=== PATIENT | male | born 1955 | race Caucasian/White ===

== ENCOUNTER 2018-04-20 12:03 | Observation (INO) | payer MEDICAID ==
[2018-04-20 12:41] LABS: Hematocrit 38.4 % (42.0-52.0); Mean Cell Volume 94.6 fl (78-100); Mean Corpuscular Hgb Conc 33.9 g/dl (32-36); Mean Platelet Volume 8.5 fl (8-11.3); Neutrophil % 56.5 % (42-75.0); Platelet Count 291 K/mm3 (150-450); Red Blood Count 4.06 M/mm3 (4.7-6.0); Red Cell Distribution Width 13.8 % (11.5-14.0); White Blood Count 5.3 K/mm3 (4.0-10.5)
[2018-04-20 13:02] LABS: Albumin * 3.2 gm/dl (3.4-5.0); Anion Gap 10.5 mmol/L (6.8-13.8); BUN/Creatinine Ratio 13.5 (9.0-21.6); Bilirubin, Total 0.7 mg/dL (0.0-1.1); Ca. Corrected For Albumin 8.3 mg/dL (8.4-10.2); Carbon Dioxide 26.9 mmol/L (24-32.6); Potassium 3.4 mmol/L (3.4-4.6); Total Protein 6.2 gm/dL (6.2-8.2)
[2018-04-20 13:25] LABS: Urine Bilirubin Negative (NEGATIVE); Urine Blood 25 /ul (NEGATIVE); Urine Ketone Negative (NEGATIVE); Urine Nitrite Negative (NEGATIVE); Urine Protein Negative (NEGATIVE); Urine Specific Gravity 1.025 SP.GR. (1.005-1.030); Urine Urobilinogen Normal (NORMAL)
[2018-04-20 13:41] LABS: Urine Amorphous Sediment Few - 1+ (NONE-FEW); Urine Appearance Slightly Cloudy (CLEAR); Urine Bacteria None Seen; Urine Color Yellow; Urine Hyaline Cast TRACE /LPF; Urine RBC None Seen /hpf (0-5); Urine WBC None Seen /hpf (0-5)
[2018-04-20 13:44] LABS: Cocaine Ur Negative (NEGATIVE); Urine Barbiturate Negative (NEGATIVE); Urine Benzodiazepines Negative (NEGATIVE); Urine Opiates Negative (NEGATIVE); Urine PCP Negative (NEGATIVE); Urine THC Positive (NEGATIVE)
[2018-04-20] MEDS ORDERED: NORMAL SALINE 1,000 ML IV ONE (14:07)
--- NOTE | 2018-04-20 14:11 | ERNOTE ---
Medical Problem HPI - General Chief Complaint: General Assessment Time Seen by Provider: 04/20/18 12:11 Source: family, EMS Exam Limitations: no limitations - Immun/Allergies/Home Medications Immunizations: IMMUNIZATION HX Immunizations Up to Date No History of Influenza Vaccine No Hx Pneumococcal Vaccination No Allergies/Adverse Reactions: Allergies Penicillins Allergy (Verified 04/20/18 12:12) Home Medications: HOME MEDICATIONS Aspirin 04/20/18 [Last Taken Unknown] - History of Present History Narrative: Patient states that he stopped taking his seizure medicines and has been using amphetamines and marijuana to self medicate. Patient was found in an apparent postictal state on the floor and was hypotensive with a blood pressure of 80/40. Timing: constant Severity: moderate Review of Systems - Review of Systems Constitutional: Present: See HPI EYE: Present: no symptoms reported ENT: Present: no symptoms reported Respiratory: Present: no symptoms reported Cardiology: Present: no symptoms reported Gastrointestinal/Abdominal: Present: no symptoms reported Genitourinary: Present: no symptoms reported Musculoskeletal: Present: no symptoms reported Skin: Present: no symptoms reported Neurological: Present: See HPI Endocrine: Present: no symptoms reported Hematologic/Lymphatic: Present: no symptoms reported Psych: Present: no symptoms reported Medical History (Last Updated 04/20/18 @ 12:12 by Agnes Whitlock) Seizure Surgical History: Surgical History (Last Updated 04/20/18 @ 12:23 by Agnes Whitlock) History of orthopedic surgery Social History: Preferred Language Japanese Do you have any hoahaoism or Yes: amish cultural preference? Smoking Status Current every day smoker Have you smoked in the past 12 Yes months Do you dip or chew tobacco No Alcohol Use occasionally Drug Use marijuana,meth No Social History Section defined Physical Exam - Physical Exam General Appearance: Present: wd/wn, moderate distress, other - Sleepy apparently postictal Head Exam: Present: normal inspection, no evidence of injury Eye Exam: Normal inspection: bilateral, PERRL: bilateral Ears, Nose, Throat: Present: normal pharynx, dry mucous membranes Neck: Present: normal inspection, nontender Respiratory: Present: no respiratory distress, normal breath sounds, no accessory muscle use, chest nontender, lungs clear Cardiovascular/Chest: Present: regular rate, rhythm, no murmur, normal peripheral pulses Gastrointestinal/Abdominal: Present: normal bowel sounds, nontender, nondistended, soft, no organomegaly Rectal Exam: Present: deferred Back Exam: Present: normal inspection, normal range of motion Extremity Exam: Present: normal inspection, non-tender, no edema, normal range of motion Neurological Exam: Present: oriented, normal mood/affect, other - Postictal Skin Exam: Present: normal color, warm/dry Lymphatic Exam: Present: no adenopathy ED Progress - Results and Orders Patient's Lab Results:: I have reviewed the patient's lab results. - Vital Signs Patient's Vital Signs:: I have reviewed the patient's vital signs. Vital Signs: Vital Signs 04/20/18 12:04 04/20/18 12:27 04/20/18 12:58 Temperature 36.0 C Pulse Rate 91 86 84 Respiratory Rate 12 15 13 Blood Pressure 131/85 128/66 127/64 O2 Sat by Pulse Oximetry 93 94 94 04/20/18 13:16 Temperature Pulse Rate 82 Respiratory Rate 14 Blood Pressure 126/64 O2 Sat by Pulse Oximetry 94 - CT/Ultrasound CT/Ultrasound Narrative: CT of the head reviewed by me - Progress/Reassessment Chief Complaint: General Assessment Plan - Plan Plan: Unclear etiology for exactly was going on with this patient. Possibly he had an extended run of seizures which could have caused some possible brain damage or he was on an extensive amphetamine and marijuana binge which also could cause brain damage. Patient be admitted to a monitored bed and EEG will be arranged. Departure Clinical Impression: Seizure disorder, Substance abuse - Departure Disposition: Still a patient Condition: Fair Referrals: Miles Pretty MD [Primary Care Provider] -
[2018-04-20 17:07] LABS: Salicylate Less than 2.8 mg/dL (2.8-20.0)
[2018-04-20] MEDS ORDERED: ACETAMINOPHEN 325 MG TABLET PO PRN (18:59)
[2018-04-20] MEDS: NORMAL SALINE 1,000 ML IV PRN (19:40)
--- NOTE | 2018-04-20 19:42 | HP ---
Chief Complaint - Chief Complaint Date of Service: 04/20/18 Time of Service: 19:06 Chief Complaint: decreased mentation History of Present Illness: Patient seen and examined, no family present. History largely obtained from chart review, as he is somnolent and does not answer many questions. He reportedly is prescribed seizure medication, possibly keppra, but hasn't been taking it. UDS positive for amphetamines and marijuana. He spent several hours in the ED today, but his mentation did not improve. He answers some yes or no questions for me, but does not give details of today's events. He is requiring oxygen currently via [place], but otherwise his vitals are within normal limits. He has episodes of confusion intermittently. He is listed as Dr. Pretty's patient, but there is only one new patient visit with him in [place] in July 2015, and seizure medication is not included in that note. Medical History (Last Updated 04/20/18 @ 12:12 by Agnes Whitlock) Seizure Surgical History: Surgical History (Last Updated 04/20/18 @ 12:23 by Agnes Whitlock) History of orthopedic surgery Social History: Preferred Language Bulgarian Do you have any druze or Yes: hindu cultural preference? Smoking Status Current every day smoker Have you smoked in the past 12 Yes months Do you dip or chew tobacco No Alcohol Use occasionally Drug Use marijuana,meth No Social History Section defined Review Of Systems (GEN) - Review of Systems Generalized/Overall Review: Absent: Fever Respiratory: Absent: Cough Cardiac: Absent: Chest Pain Abdominal: Absent: Vomiting Genitourinary: Absent: Urgency Immunizations: IMMUNIZATION HX Immunizations Up to Date No History of Influenza Vaccine No Hx Pneumococcal Vaccination No Allergies/Adverse Reactions: Allergies Allergy/AdvReac Type Severity Reaction Status Date / Time Penicillins Allergy Verified 04/20/18 12:12 Home Medications: HOME MEDICATIONS Aspirin 04/20/18 [Last Taken Unknown] Exam - Exam Vital Signs: Vital Signs - Last Taken Temp 36.0 C 04/20/18 12:04 Pulse 86 04/20/18 16:52 Resp 12 04/20/18 16:52 BP 110/75 04/20/18 16:52 Pulse Ox 93 04/20/18 16:52 Constitutional: Present: Somnolent, Looks Older than stated age ENT Exam: Present: dry mucous membranes Neck: Absent: lymphadenopathy (R), lymphadenopathy (L) Respiratory: Present: lungs clear, normal breath sounds, No wheezing. Absent: rhonchi Cardiovascular/Chest: Present: regular rate, rhythm. Absent: edema Abdomen: Present: Normal bowel sounds, soft, nontender, nondistended Extremity: Present: no pedal edema Skin Exam: Present: other - superficial 15 cm abrasion of mid left anterior lower leg Eye contact: Present: avoids eye contact, decreased rate of speech, other - mumbles words Diagnostic Studies: Abnormal Lab Results 04/20/18 04/20/18 04/20/18 Range/Units 12:30 12:30 12:30 RBC 4.06 L (4.7-6.0) M/mm3 Hgb 13.0 L (13.5-18.0) gm/dL Hct 38.4 L (42.0-52.0) % MCH 32.0 H (27-31) pg Eosinophils % 5.6 H (0.0-3.0) % Basophils % 1.1 H (0.0-1.0) % Random Glucose 113 H (70-110) mg/dL Calcium Adj for Albumin 8.3 L (8.4-10.2) mg/dL ALT 18 L (19-67) U/L Albumin 3.2 L (3.4-5.0) gm/dl Urine Blood (NEGATIVE) /ul Salicylates Less than 2.8 L (2.8-20.0) mg/dL Acetaminophen 8.0 L (10.0-30.0) mcg/mL Urine Amphetamine (NEGATIVE) Urine Marijuana (THC) (NEGATIVE) 04/20/18 04/20/18 Range/Units 12:56 12:56 RBC (4.7-6.0) M/mm3 Hgb (13.5-18.0) gm/dL Hct (42.0-52.0) % MCH (27-31) pg Eosinophils % (0.0-3.0) % Basophils % (0.0-1.0) % Random Glucose (70-110) mg/dL Calcium Adj for Albumin (8.4-10.2) mg/dL ALT (19-67) U/L Albumin (3.4-5.0) gm/dl Urine Blood 25 H (NEGATIVE) /ul Salicylates (2.8-20.0) mg/dL Acetaminophen (10.0-30.0) mcg/mL Urine Amphetamine Positive H (NEGATIVE) Urine Marijuana (THC) Positive H (NEGATIVE) Laboratory Results WBC 5.3 K/mm3 (4.0-10.5) 04/20/18 12:30 RBC 4.06 M/mm3 (4.7-6.0) L 04/20/18 12:30 Hgb 13.0 gm/dL (13.5-18.0) L 04/20/18 12:30 Hct 38.4 % (42.0-52.0) L 04/20/18 12:30 MCV 94.6 fl (78-100) 04/20/18 12: MCH 32.0 pg (27-31) H 04/20/18 12: MCHC 33.9 g/dl (32-36) 04/20/18 12: RDW 13.8 % (11.5-14.0) 04/20/18 12:30 Plt Count 291 K/mm3 (150-450) 04/20/18 12: MPV 8.5 fl (8-11.3) 04/20/18 12: Immature Gran % (Auto) 0.40 % (0.001-0.429) 04/20/18 12: Immature Gran # (Auto) 0.02 K/mm3 (0.000-0.0310) 04/20/18 12:30 Neutrophils % 56.5 % (42-75.0) 04/20/18 12:30 Lymphocytes % 28.3 % (20-51) 04/20/18 12:30 Monocytes % 8.1 % (0.0-9) 04/20/18 12:30 Eosinophils % 5.6 % (0.0-3.0) H 04/20/18 12: Basophils % 1.1 % (0.0-1.0) H 04/20/18 12:30 Nucleated RBC % 0.0 k/mm3 (0-1) 04/20/18 12:30 Neutrophils # 3.0 K/mm3 (1.3-6.0) 04/20/18 12:30 Lymphocytes # 1.51 k/mm3 (1.5-3.5) 04/20/18 12: Monocytes # 0.4 k/mm3 (0.0-1.0) 04/20/18 12:30 Eosinophils # 0.3 k/mm3 (0.0-0.7) 04/20/18 12:30 Absolute Basophils 0.1 k/mm3 (0.0-0.1) 04/20/18 12:30 Sodium 139 mmol/L (132-142) 04/20/18 12:30 Plasma Sodium 139 mmol/L (130-142) 04/20/18 12:30 Potassium 3.4 mmol/L (3.4-4.6) 04/20/18 12:30 Chloride 105 mmol/L (97-106) 04/20/18 12:30 Carbon Dioxide 26.9 mmol/L (24-32.6) 04/20/18 12:30 Anion Gap 10.5 mmol/L (6.8-13.8) 04/20/18 12:30 BUN 12 mg/dL (6-23) 04/20/18 12:30 Creatinine 0.89 mg/dL (0.4-1.4) 04/20/18 12:30 Est GFR (Non-Af Amer) 91 mL/min (60-130) 04/20/18 12:30 BUN/Creatinine Ratio 13.5 (9.0-21.6) 04/20/18 12:30 Random Glucose 113 mg/dL (70-110) H 04/20/18 12:30 Calcium 8.0 mg/dL (7.9-10.9) 04/20/18 12:30 Calcium Adj for Albumin 8.3 mg/dL (8.4-10.2) L 04/20/18 12:30 Magnesium 2.0 mg/dL (1.2-2.8) 04/20/18 12:30 Total Bilirubin 0.7 mg/dL (0.0-1.1) 04/20/18 12:30 AST 17 U/L (0-48) 04/20/18 12:30 ALT 18 U/L (19-67) L 04/20/18 12:30 Alkaline Phosphatase 52 U/L (50-170) 04/20/18 12:30 Total Protein 6.2 gm/dL (6.2-8.2) 04/20/18 12:30 Albumin 3.2 gm/dl (3.4-5.0) L 04/20/18 12:30 Urine Color Yellow 04/20/18 12:56 Urine Appearance Slightly cloudy (CLEAR) 04/20/18 12:56 Urine pH 6.0 pH (5.0-7.0) 04/20/18 12:56 Ur Specific [place] 1.025 SP.GR. (1.005-1.030) 04/20/18 12:56 Urine Protein Negative mg/dL (NEGATIVE) 04/20/18 12:56 Urine Glucose (UA) Negative mg/dL (NEGATIVE) 04/20/18 12:56 Urine Ketones Negative mg/dL (NEGATIVE) 04/20/18 12:56 Urine Blood 25 /ul (NEGATIVE) H 04/20/18 12:56 Urine Nitrate Negative (NEGATIVE) 04/20/18 12:56 Urine Bilirubin Negative mg/dl (NEGATIVE) 04/20/18 12:56 Urine Urobilinogen Normal EU/dl (NORMAL) 04/20/18 12:56 Ur Leukocyte Esterase Negative /ul (NEGATIVE) 04/20/18 12:56 Urine RBC None seen /hpf (0-5) 04/20/18 12:56 Urine WBC None seen /hpf (0-5) 04/20/18 12:56 Ur Epithelial Cells None seen /hpf (0-5) 04/20/18 12:56 Amorphous Sediment Few - 1+ (NONE-FEW) 04/20/18 12:56 Urine Bacteria None seen (NONE) 04/20/18 12:56 Hyaline Casts Trace /LPF (NONE) 04/20/18 12:56 Urine Culture Comments No culture indicated 04/20/18 12:56 Salicylates Less than 2.8 mg/dL (2.8-20.0) L 04/20/18 12:30 Urine Opiates Screen Negative (NEGATIVE) 04/20/18 12:56 Acetaminophen 8.0 mcg/mL (10.0-30.0) L 04/20/18 12:30 Barbiturate Screen Negative (NEGATIVE) 04/20/18 12:56 Ur Phencyclidine Scrn Negative (NEGATIVE) 04/20/18 12:56 Urine Amphetamine Positive (NEGATIVE) H 04/20/18 12:56 U Benzodiazepines Scrn Negative (NEGATIVE) 04/20/18 12:56 Urine Cocaine Screen Negative (NEGATIVE) 04/20/18 12:56 Urine Marijuana (THC) Positive (NEGATIVE) H 04/20/18 12:56 Ethyl Alcohol Less than 3.0 mg/dL (0.0-10.0) 04/20/18 12:30 Assessment/Plan - Assessment/Plan (1) Altered mental state Assessment: Ddx includes medication side effect, OD, seizure, brain lesion, electrolyte im balance, infection, hypoxia, hypoglycemia. UDS positive for amphetamine and THC. Has been in our facility for greater than 7 hours without significant improvement in mentation. Head CT was negative. EEG pending for tomorrow. No significant abnormalities on CBC and CMP. WBC not elevated. UA negative for leukocyte esterase and nitrites. CXR, EKG, and ABG pending. Infection seems unlikely, as he is afebrile without respiratory or urinary symptoms, and WBC not elevated. Glucose not decreased at 113. If his mentation does not improve, however, may need to obtain lumbar puncture. Problem: Acute (2) Seizure disorder Assessment: Per ED notes, he reported having a seizure disorder and hadn't been taking his medications. One office note from 2016 does not mention seizure disorder, and he is not alert enough to properly answer questions. He was given a dose of keppra in the ED. EEG ordered, and will reevaluate in the morning. Problem: Acute (3) Substance abuse Assessment: UDS positive for amphetamines and marijuana. He is somnolent, not answering questions. Vitals largely within normal limits, but he is requiring oxygen via [place]. Will further assess when he is more awake, but will need to monitor for signs of withdrawal. Problem: Acute
[2018-04-21] MEDS: NORMAL SALINE 1,000 ML IV PRN (04:22)
--- NOTE | 2018-04-21 08:20 | DS ---
(1) Altered mental state Problem: Resolved Qualifiers: Altered mental status type: somnolence Qualified Code(s): R40.0 - Somnolence (2) Seizure disorder Problem: Ruled-out (3) Substance abuse Problem: Chronic (4) Pleural effusion Problem: Acute Description of Stay: Patient was reportedly found down by family and brought to the ED. No significant abnormalities on his labs, but urine was positive for marijuana and amphetamines. Negative alcohol. No signs of infection, and glucose was not decreased at 113. He spent several hours in the ED without improvement in his mentation, and was admitted for observation. He was mildly hypoxic on ABG. EKG did show inverted T waves, which were not present on previous EKG from 2006. Ne gative troponin. Negative chest pain and shortness of breath. The following morning, his somnolence resolved and he was able to answer questions. He denies recent infection. He states he uses the marijuana for pain control. He does not go to the doctor often but has some shortness of breath with exertion. Will send him with an inhaler, and would recommend repeating EKG at follow up. In the ED, there was question of him having a seizure disorder and not taking his meds, but he denied having seizures or taking medications for seizure history. It is felt his somnolence was secondary to drug use. His portable CXR showed a left sided pleural effusion and possible infiltrate, but he is asymptomatic for pneumonia. Recommend repeating CXR at follow up. Lives at home with ex- and son, and reports feeling safe at home. Procedures Performed: none Results and Findings: Lab Pending Results 04/20/18 12:30: WBC 5.3, RBC 4.06 L, Hgb 13.0 L, Hct 38.4 L, MCV 94.6, MCH 32.0 H, MCHC 33.9, RDW 13.8, Plt Count 291, MPV 8.5, Immature Gran % (Auto) 0.40, Immature Gran # (Auto) 0.02, Neutrophils % 56.5, Lymphocytes % 28.3, Monocytes % 8.1, Eosinophils % 5.6 H, Basophils % 1.1 H, Nucleated RBC % 0.0, Neutrophils # 3.0, Lymphocytes # 1.51, Monocytes # 0.4, Eosinophils # 0.3, Absolute Basophils 0.1 04/20/18 12:30: Sodium 139, Plasma Sodium 139, Potassium 3.4, Chloride 105, Carbon Dioxide 26.9, Anion Gap 10.5, BUN 12, Creatinine 0.89, Est GFR (Non-Af Amer) 91, BUN/Creatinine Ratio 13.5, Random Glucose 113 H, Calcium 8.0, Calcium Adj for Albumin 8.3 L, Magnesium 2.0, Total Bilirubin 0.7, AST 17, ALT 18 L, Alkaline Phosphatase 52, Total Protein 6.2, Albumin 3.2 L 04/20/18 12:30: Ethyl Alcohol Less than 3.0 04/20/18 12:30: Salicylates Less than 2.8 L, Acetaminophen 8.0 L 04/20/18 12:56: Urine Color Yellow, Urine Appearance Slightly cloudy, Urine pH 6.0, Ur Specific [place] 1.025, Urine Protein Negative, Urine Glucose (UA) Negative, Urine Ketones Negative, Urine Blood 25 H, Urine Nitrate Negative, Urine Bilirubin Negative, Urine Urobilinogen Normal, Ur Leukocyte Esterase Negative, Urine RBC None seen, Urine WBC None seen, Ur Epithelial Cells None seen, Amorphous Sediment Few - 1+, Urine Bacteria None seen, Hyaline Casts Trace, Urine Culture Comments No culture indicated 04/20/18 12:56: Urine Opiates Screen Negative, Barbiturate Screen Negative, Ur Phencyclidine Scrn Negative, Urine Amphetamine Positive H, U Benzodiazepines Scrn Negative, Urine Cocaine Screen Negative, Urine Marijuana (THC) Positive H 04/20/18 20:04: pCO2 34.9 L, pO2 67.5 L, HCO3 20.5 L, Total CO2 21.5, Base Excess -3.9 L, ABG pH 7.39, ABG O2 Sat (Measured) 93.4 L 04/20/18 23:16: Troponin I Less than 0.017 Discharge Location: Home Disposition: Home self-care Condition: Good Discharge Activity: Activity as tolerated Discharge Diet: General/regular food Referrals: Luz Woodard DO [Staff Physician] - Problem Oriented Discharge Instructions to Patient/Family: Substance Use Disorder, Finding Treatment for Addiction Additional Patient Instructions (free text): Follow up Appointment scheduled for 04/28/18 at 8:30am at [facility] with Dr. Woodard. Prescriptions (Any new or edited meds): Albuterol Sulfate [Proair Hfa] 1 - 2 puff IH Q4H PRN #1 inhaler PRN Reason: Shortness Of Breath Complete Home Medications List: Complete Home Medication List: Albuterol Sulfate [Proair Hfa] 1 - 2 puff IH Q4H PRN #1 inhaler 04/21/18 Exam - Exam Vital Signs: Vital Signs - Last Taken Temp 36.6 C 04/21/18 09:00 Pulse 75 04/21/18 09:00 Resp 16 04/21/18 09:00 BP 140/80 04/21/18 09:00 Pulse Ox 95 04/21/18 09:00 Constitutional: Present: Alert, Cooperative, Well developed, No distress Neck: Absent: lymphadenopathy (R), lymphadenopathy (L) Respiratory: Present: no respiratory distress, wheezing Cardiovascular/Chest: Present: regular rate, rhythm Abdomen: Present: Normal bowel sounds, soft, nontender Extremity: Present: other - tenderness and mild swelling of left anterior lower leg, 15 cm superficial abrasion Appearance: Present: appropriate insight Eye contact: Present: cooperative
[2018-04-21 09:16] VITALS: BP 140/80
== END 2018-04-21 09:25 | disposition home or self-care (01) ==
LOC: SCU 12:03 → ER 12:03 → SCU 17:49
PROVIDERS: ADMIT Family Medicine; ATTEND Family Medicine
DX: F12.10 Cannabis abuse, uncomplicated; J90 Pleural effusion, not elsewhere classified; F17.210 Nicotine dependence, cigarettes, uncomplicated; R40.0 Somnolence; F15.10 Other stimulant abuse, uncomplicated
CPT/HCPCS: 36415; 36600; 70450; 71010; 71045; 80053; 80307; 80320; 80329; 81001; 82803; 83735; 84484; 85025; 93005; 96361; 96365; 99284; G0378; G0479; G0480; G0481